=== PATIENT | female | born 1995 | race Caucasian/White ===

== ENCOUNTER 2016-10-12 12:42 | Inpatient (IN) | payer SELFPAY ==
[2016-10-12] MEDS ORDERED: NS 1,000 ML IV ONE ×2 (13:06→15:58)
--- NOTE | 2016-10-12 13:14 | EDPHY ---
H & P Stated Complaint: LUQ pain since yesterday;sent from our UC for eval;has IV inplace Source: Patient, Family Exam Limitations: No limitations - Personal History LMP (Females 10-55): 8-14 Days Ago Current Tetanus Diphtheria and Acellular Pertussis (TDAP): Yes Tetanus Vaccine Date: 2015 - Medical/Surgical History Hx Asthma: No Hx Chronic Respiratory Disease: No Hx Diabetes: No Hx Cardiac Disease: No Hx Renal Disease: No Hx Cirrhosis: No Hx Alcoholism: No Hx HIV/AIDS: No Hx Splenectomy or Spleen Trauma: No Other PMH: hx ovarian cysts - Social History Smoking Status: Former smoker Time Seen by Provider: 10/12/16 13:05 HPI/ROS: CHIEF COMPLAINT: Abdominal pain HISTORY OF PRESENT ILLNESS: Patient complains of 2 days history of left-sided abdominal pain. This is the left upper quadrant left-sided pain. It is a severe pain. Worse with movement palpation. Some improvement rest. Does not radiate. No constipation or diarrhea. Some nausea and vomiting. No bloody stools or emesis. No trauma or injury. No abdominal surgeries. She presented to urgent care where they performed laboratory studies and sent to to our facility due to suspected need for CT scan. No other associated complaints or modifying factors. PREVIOUS ABDOMINAL SURGERIES/DIAGNOSES: None REVIEW OF SYSTEMS: Ten systems reviewed and are negative unless otherwise noted in the HPI EXAMINATION: General Appearance: Alert, no distress Head: normocephalic, atraumatic Eyes: Pupils equal and round, no conjunctival pallor or injection ENT, Mouth: Mucous membranes moist. Uvula midline. Neck: Normal inspection, supple, non-tender Respiratory: Lungs are clear to auscultation. No wheezing, rhonchi or crackles. Cardiovascular: Regular rate and rhythm. No murmur. Gastrointestinal: Abdomen is soft. Moderate tenderness on the left quadrants. No guarding the left upper quadrant. No rigidity. No tympany. No CVA tenderness. Back: non-tender, no bony abnormalities Neurological: A&O, nonfocal, normal gait Skin: Warm and dry, no rash Extremities: Nontender, no pedal edema Psychiatric: Mood and affect normal DIFFERENTIAL DIAGNOSES: Including but not limited to gastritis, pancreatitis, colitis, diverticulitis, cholecystitis, enteritis, mesenteric adenitis MDM: 1:13 p.m. Left-sided abdominal pain with guarding and reported fever at home. CT scan has been ordered. IV fluid resuscitation, IV morphine and laboratory studies ordered 2:09 p.m. Pain medication has significantly improved her pain but she still does report left-sided pain. Laboratory studies reveal leukocytosis. CT scan is pending at this time. 3:[address] Espinoza contacted me with findings of pyelonephritis with mild hydronephrosis. Small collection of fluid within the kidney that he does not recommend drainage of at this time. I have informed the patient of this. I have ordered blood cultures and a lactic acid. Given the findings and her lack of pain control, I have patient hospitalist for admission. Proceed with antibiotics after blood cultures. Patient is comfortable with this plan. 4:04 p.m. Have discussed the case with hospitalist Dr. Jen Nascimento. She will admit the patient to her service. She agrees with Rocephin antibiotics at this time. Patient is informed of this and agrees to admission. She has been admitted in stable condition. ED Precautions: Worsening pain. Fever. Bloody stools. Bloody emesis. Constipation or diarrhea. SUPERVISION: This patient was independently evaluated without direct examination by the attending physician. Case was discussed with attending physician. Case discussed with Dr. Garfield Luo ([facility]) Constitutional: Initial Vital Signs Temperature (C) 37 C 10/12/16 12:45 Heart Rate 81 10/12/16 12:45 Respiratory Rate 18 10/12/16 12:45 Blood Pressure 95/58 L 10/12/16 12:45 O2 Sat (%) 97 10/12/16 12:45 O2 Delivery Mode Room Air O2 (L/minute) 16 Allergies/Adverse Reactions: No Known Allergies Allergy (Verified 10/12/16 12:51) Home Medications: Medication Instructions Recorded NK [No Known Home Meds] 10/12/16 Medical Decision Making ED Course/Re-evaluation: I did not see this patient while she was in the emergency department. However her care was discussed with the PA while the patient was in the department. I agree with treatment plan and management (Garfield Luo) - Data Points Laboratory Results: Laboratory Results 10/13/16 04:37 10/13/16 04:37 10/13/16 10/13/16 04:37 04:37 WBC 13.84 10^3/uL H 10^3/uL (3.80-9.50) RBC 3.43 10^6/uL L 10^6/uL (4.18-5.33) Hgb 11.2 g/dL L g/dL (12.6-16.3) Hct 32.3 % L % (38.0-47.0) MCV 94.2 fL fL (81.5-99.8) MCH 32.7 pg pg (27.9-34.1) MCHC 34.7 g/dL g/dL (32.4-36.7) RDW 12.1 % % (11.5-15.2) Plt Count 167 10^3/uL D 10^3/uL (150-400) MPV 9.7 fL fL (8.7-11.7) Neut % (Auto) 67.3 % % (39.3-74.2) Lymph % (Auto) 16.5 % % (15.0-45.0) [place] % (Auto) 15.0 % H % (4.5-13.0) Eos % (Auto) 0.4 % L % (0.6-7.6) Baso % (Auto) 0.4 % % (0.3-1.7) Nucleat RBC Rel Count 0.0 % % (0.0-0.2) Absolute Neuts (auto) 9.32 10^3/uL H 10^3/uL (1.70-6.50) Absolute Lymphs (auto) 2.28 10^3/uL 10^3/uL (1.00-3.00) Absolute Monos (auto) 2.08 10^3/uL H 10^3/uL (0.30-0.80) Absolute Eos (auto) 0.05 10^3/uL 10^3/uL (0.03-0.40) Absolute Basos (auto) 0.05 10^3/uL 10^3/uL (0.02-0.10) Absolute Nucleated RBC 0.00 10^3/uL 10^3/uL (0-0.01) Immature Gran % 0.4 % % (0.0-1.1) Immature Gran # 0.06 10^3/uL 10^3/uL (0.00-0.10) Sodium 138 mEq/L mEq/L (134-144) Potassium 3.8 mEq/L mEq/L (3.5-5.2) Chloride 110 mEq/L mEq/L (97-110) Carbon Dioxide 23 mEq/l mEq/l (22-31) Anion Gap 5 mEq/L L mEq/L (8-16) BUN 6 mg/dL L mg/dL (7-23) Creatinine 0.6 mg/dL mg/dL (0.6-1.0) Estimated GFR > 60 Glucose 90 mg/dL mg/dL (70-100) Calcium 7.8 mg/dL L mg/dL (8.5-10.4) Iron 14.0 mcg/dL L mcg/dL (37-170) TIBC 241 ug/dL L ug/dL (260-490) Iron Saturation 6 % L % (20-55) Ferritin 50.5 ng/mL ng/mL (6.2-264.0) Vitamin B12 307 pg/mL pg/mL (239-931) Microbiology Results: MICROBIOLOGY 10/12/16 16:39 Unspecified Urine Culture - Preliminary Gram Negative Elder Medications Given: Discontinued Medications Hydromorphone HCl (Dilaudid) 0.5 mg IVP EDNOW ONE Stop: 10/12/16 16:43 Last Admin: 10/12/16 16:45 Dose: 0.5 mg Sodium Chloride (Ns) 1,000 mls @ 0 mls/hr IV ONCE ONE PRN Reason: Wide Open Stop: 10/12/16 13:07 Last Admin: 10/12/16 13:06 Dose: 1,000 mls Sodium Chloride (Ns) 1,000 mls @ 0 mls/hr IV ONCE ONE PRN Reason: Wide Open Stop: 10/12/16 15:59 Last Admin: 10/12/16 16:16 Dose: 1,000 mls Ceftriaxone Sodium/Dextrose (Rocephin 1 Gm (Premix)) 50 mls @ 100 mls/hr IV EDNOW ONE PRN Reason: Protocol Stop: 10/12/16 16:32 Last Admin: 10/12/16 16:40 Dose: 50 mls Morphine Sulfate (Morphine) 2 mg IVP EDNOW ONE Stop: 10/12/16 13:14 Last Admin: 10/12/16 13:13 Dose: 2 mg Morphine Sulfate (Morphine) 2 mg IVP EDNOW ONE Stop: 10/12/16 13:34 Last Admin: 10/12/16 13:33 Dose: 2 mg Morphine Sulfate (Morphine) 4 mg IVP EDNOW ONE Stop: 10/12/16 14:30 Last Admin: 10/12/16 14:30 Dose: 4 mg Ondansetron HCl (Zofran) 4 mg IVP EDNOW ONE Stop: 10/12/16 16:44 Last Admin: 10/12/16 16:45 Dose: 4 mg Departure - Departure Disposition: [facility] Inpatient Acute Condition: Good
[2016-10-12 13:34] LABS: % IMMATURE GRANULYOCYTES 0.6 % (0.0-1.1); ABSOLUTE IMMATURE GRANULOCYTES 0.09 10^3/uL (0.00-0.10); ADD DIFF? NO; ADD MORPH? NO; ADD SCAN? NO; ATYPICAL LYMPHOCYTE FLAG 0 (0-99); FRAGMENT RBC FLAG 0 (0-99); HEMATOCRIT 33.8 % (38.0-47.0); HEMOGLOBIN 11.8 g/dL (12.6-16.3); LEFT SHIFT FLG 70 (0-99); LIPEMIA HEMOLYSIS FLAG 90 (0-99); MEAN CELL HEMOGLOBIN 32.1 pg (27.9-34.1); MEAN CELL HEMOGLOBIN CONCENTR. 34.9 g/dL (32.4-36.7); MEAN CELL VOLUME 91.8 fL (81.5-99.8); MEAN PLATELET VOLUME 9.8 fL (8.7-11.7); PLATELET CLUMPS FLAG 0 (0-99); PLATELET COUNT 224 10^3/uL (150-400); RED BLOOD CELL COUNT 3.68 10^6/uL (4.18-5.33); RED CELL DISTRIBUTION WIDTH 12.1 % (11.5-15.2)
[2016-10-12 13:50] LABS: ALANINE AMINOTRANSFERASE 25 IU/L (9-52); ALBUMIN 3.8 g/dL (3.5-5.0); ALKALINE PHOSPHATASE 53 IU/L (38-126); ANION GAP 10 mEq/L (8-16); ASPARTATE AMINOTRANSFERASE 19 IU/L (14-46); BILIRUBIN-CONJUGATED 0.3 mg/dL (0.0-0.5); BILIRUBIN-UNCONJUGATED 0.7 mg/dL (0.0-1.1); CALCIUM 8.1 mg/dL (8.5-10.4); CARBON DIOXIDE 24 mEq/l (22-31); CHLORIDE 107 mEq/L (97-110); CREATININE 0.6 mg/dL (0.6-1.0); GLOMERULAR FILTRATION RATE > 60; GLUCOSE 88 mg/dL (70-100); POTASSIUM 3.6 mEq/L (3.5-5.2); SODIUM 141 mEq/L (134-144); TOTAL PROTEIN 6.4 g/dL (6.3-8.2)
[2016-10-12] MEDS ORDERED: IOPAMIDOL (ISOVUE-300) 100 ML BTL IV ONE (14:20)
[2016-10-12 14:27] LABS: COLOR PALE YELLOW; LEUKOCYTE ESTERASE,URINE TRACE (NEGATIVE); NITRITE,URINE NEGATIVE (NEGATIVE)
[2016-10-12 14:35] LABS: BACTERIA TRACE /hpf (NONE SEEN); MUCUS TRACE /lpf (NONE-1+)
[2016-10-12] MEDS ORDERED: HYDROmorphONE/DILAUDID 1 MG/ML SYR ONE (16:02)
[2016-10-12] MEDS ORDERED: ONDANSETRON 4 MG/2 ML VIAL ONE (16:37)
[2016-10-12] MEDS ORDERED: HYDROmorphONE/DILAUDID 1 MG/ML SYR IVP ONE (16:42)
[2016-10-12] MEDS ORDERED: ONDANSETRON 4 MG/2 ML VIAL IVP ONE (16:43)
[2016-10-12] MEDS: KETOROLAC 30 MG/1 ML SDV IVP PRN (17:18)
[2016-10-12] MEDS: NS 1,000 ML IV SCH (17:18)
--- NOTE | 2016-10-12 18:07 | GHP ---
[f rep st] HISTORY AND PHYSICAL DATE OF ADMISSION: 10/12/2016 CHIEF COMPLAINT: Left upper quadrant pain. HISTORY: The patient is a 21-year-old female, who presents with severe left upper quadrant pain for the last 2 days. It started as a fever yesterday morning and then she had generalized abdominal pa in that quickly localized under her left rib cage. She had a fever to 103. The pain has progressiv mona worsened and is moving to her back and flank. It does not radiate to her groin. She had some t ransient dysuria 1 week ago that felt like a UTI but this spontaneously resolved so she did not seek treatment for antibiotics. Last night, she had recurrence of dysuria associated with her fever. S he did have nausea and vomiting this morning. PAST MEDICAL HISTORY: Copper IUD for control. MEDICATIONS: Please see computer record for full detailed list. ALLERGIES: No known drug allergies. SOCIAL HISTORY: No smoking. No alcohol. She lives with her boyfriend. They have no children. REVIEW OF SYSTEMS: Complete Review of Systems obtained. Review of Systems is negative regarding co nstitutional, HEENT, GI, pulmonary, cardiovascular, , hematology, skin, musculoskeletal, endocrine , psych except for positives as noted in HPI. FAMILY HISTORY: Grandmother with bipolar disorder. Otherwise negative. PHYSICAL EXAMINATION: GENERAL: Well-developed, well-nourished female, in no acute distress. VITAL SIGNS: Temperature is 37.0, pulse 106, blood pressure 123/57, satting 97% on room air. EYES: Nor mal conjunctivae, pupils react to light. ENT: Normal ears and nose. Hearing intact. Normal lips and teeth. Oropharynx moist. NECK: Trachea midline. No thyromegaly. CHEST: Normal respiratory effort. LUNGS: Clear to auscultation bilaterally. CARDIOVASCULAR: Regular rate and rhythm. No m urmur. No lower extremity edema. ABDOMEN: Soft, very tender in the left upper quadrant as well as her left costovertebral angle. She is exquisitely tender and jumps in pain with the most slight pa lpation. There is no hepatosplenomegaly. SKIN: Warm, dry, intact. No rash. MUSCULOSKELETAL: No cyanosis or clubbing. Strength 5/5 upper and lower extremities. NEUROLOGIC: Cranial nerves intac t. Normal sensation to light touch. PSYCH: Alert and oriented x3. Normal affect. Normal judgmen t and insight. Normal memory. LABORATORY DATA: White count 15.46, hematocrit 33.8, platelets 224. Sodium 141, potassium 3.6, chl oride 107, bicarb 24, BUN 6, creatinine 0.6, glucose 88. LFTs are negative. Lipase is negative. B eta hCG is negative. Lactate is 1.1. Urinalysis is remarkably under-whelming with 1+ blood, trace leuk esterase, trace bacteria, 1-3 white blood cells. IMAGING PROCEDURE: CT scan of the abdomen and pelvis shows pyelonephritis and possible pyonephrosis . This case was discussed with TIFFANY Caraballo, emergency room regarding need for admission. ASSESSMENT/PLAN: 1. Left-sided pyelonephritis with pyonephrosis. Continue IV ceftriaxone as started in the emergenc y room. Blood cultures are pending. I will add on a urine culture. Will treat pain with IV Dilaud id. Will consult Infectious Disease as this pyelonephritis is complicated by an area of pyonephrosi s. Per Radiology, this is not large enough to do any type of interventional drain. She may however need followup imaging to ensure resolution. 2. Sepsis. This is due to the pyelonephritis. Will continue IV fluids and follow her white blood cells. 3. Anemia. Her menstrual history needs to be clarified. Will check iron studies in the morning. CODE STATUS: Full. ADMISSION STATUS: Will admit to observation; although, given the complications as discussed above, she may need a longer stay. DVT PROPHYLAXIS: She is low risk. We will hold off on pharmacologic prophylaxis at this time. /[id number]/MODL
[2016-10-12] MEDS: PHENAZOPYRIDINE HCL 100 MG TAB PO SCH (20:28)
[2016-10-12] MEDS: oxyCODONE IR 5 MG TAB PO PRN ×2 (21:31→21:55)
[2016-10-12] MEDS: ONDANSETRON 4 MG/2 ML VIAL IVP PRN (21:31)
[2016-10-12] MEDS: HYDROmorphONE/DILAUDID 1 MG/ML SYR IVP PRN (21:56)
[2016-10-12] MEDS: ACETAMINOPHEN 325 MG TAB PO PRN (23:35)
[2016-10-13] MEDS: KETOROLAC 30 MG/1 ML SDV IVP PRN ×4 (02:05→23:39)
[2016-10-13] MEDS: oxyCODONE IR 5 MG TAB PO PRN ×5 (02:05→20:27)
[2016-10-13 04:42] LABS: % IMMATURE GRANULYOCYTES 0.4 % (0.0-1.1); ABSOLUTE IMMATURE GRANULOCYTES 0.06 10^3/uL (0.00-0.10); ADD DIFF? NO; HEMATOCRIT 32.3 % (38.0-47.0); HEMOGLOBIN 11.2 g/dL (12.6-16.3); MEAN CELL HEMOGLOBIN 32.7 pg (27.9-34.1); MEAN CELL HEMOGLOBIN CONCENTR. 34.7 g/dL (32.4-36.7); MEAN CELL VOLUME 94.2 fL (81.5-99.8); MEAN PLATELET VOLUME 9.7 fL (8.7-11.7); PLATELET COUNT 167 10^3/uL (150-400); RED BLOOD CELL COUNT 3.43 10^6/uL (4.18-5.33); RED CELL DISTRIBUTION WIDTH 12.1 % (11.5-15.2)
[2016-10-13 04:43] LABS: ADD MORPH? NO; ADD SCAN? NO; ATYPICAL LYMPHOCYTE FLAG 0 (0-99); FRAGMENT RBC FLAG 0 (0-99); LEFT SHIFT FLG 30 (0-99); LIPEMIA HEMOLYSIS FLAG 90 (0-99); PLATELET CLUMPS FLAG 0 (0-99)
[2016-10-13 05:07] LABS: ANION GAP 5 mEq/L (8-16); CALCIUM 7.8 mg/dL (8.5-10.4); CARBON DIOXIDE 23 mEq/l (22-31); CHLORIDE 110 mEq/L (97-110); CREATININE 0.6 mg/dL (0.6-1.0); GLOMERULAR FILTRATION RATE > 60; GLUCOSE 90 mg/dL (70-100); POTASSIUM 3.8 mEq/L (3.5-5.2); SODIUM 138 mEq/L (134-144)
[2016-10-13 05:16] LABS: % SATURATION 6 % (20-55); TOTAL IRON BINDING CAPACITY 241 ug/dL (260-490)
[2016-10-13 05:43] LABS: FERRITIN - BCH 50.5 ng/mL (6.2-264.0)
[2016-10-13] MEDS: PHENAZOPYRIDINE HCL 100 MG TAB PO SCH ×3 (09:22→20:26)
[2016-10-13] MEDS: NS 1,000 ML IV SCH ×2 (09:28→21:39)
[2016-10-13] MEDS: ACETAMINOPHEN 325 MG TAB PO PRN ×2 (09:28→16:27)
--- NOTE | 2016-10-13 10:05 | HOSPPROG ---
Hospitalist Progress Note Assessment/Plan: Tanisha is a 21 y/o female who presented to the ER with severe left upper quadrant pain. She had a fever of 103. This is her 3rd bout of pyelonephritis. Today is my first encounter with the patient. Chart reviewed. Reviewed her care with Dr Carl. * Acute pyelonephritis, left sided CT scan reviewed with Dr Carl on empiric Ceftriaxone awaiting blood cx and urine cx *pain due to the above should improve w treatment *sepsis due to the above *iron deficiency anemia she has heavy menses when improved from hospital stay/ should start iron therapy advised to use iron pans for cooking *plan: will require another midnight stay for treatment of IV antibiotics, repeat labs in a.m. Subjective: Tanisha is c/o left upper quadrant pain. Objective: Vital Signs Temp Pulse Resp BP Pulse Ox 36.7 C 80 16 95/56 L 96 10/13/16 09:19 10/13/16 09:19 10/13/16 09:19 10/13/16 09:19 10/13/16 09:19 Laboratory Results 10/13/16 04:37 10/13/16 04:37 10/12/16 10/13/16 10/14/16 05:59 05:59 05:59 Intake Total 3420 Output Total 1700 Balance 1720 - Physical Exam Constitutional: appears nourished, uncomfortable, No not in pain Eyes: PERRL Ears, Nose, Mouth, Throat: hearing normal Cardiovascular: regular rate and rhythym Respiratory: no respiratory distress Gastrointestinal: normoactive bowel sounds, tenderness Skin: warm, No normal color (pale) Musculoskeletal: full muscle strength Neurologic: sensation intact bilaterally Psychiatric: interacting appropriately ICD10 Worksheet Patient Problems: Problems Problem Status Onset Pyelonephritis Acute - ICD10 Problem Qualifiers (1) Pyelonephritis
--- NOTE | 2016-10-13 10:54 | GCON ---
[f rep st] CONSULTATION INFECTIOUS DISEASE CONSULTATION. DATE OF CONSULTATION: 10/13/2016 REASON FOR CONSULTATION: Pyelonephritis. HISTORY OF PRESENT ILLNESS: Patient is a 21-year-old female with a past medical history of recurren t UTIs and pyelonephritis whom I am asked to see in consultation for left-sided pyelonephritis. The patient was in her usual state of health until Friday at which point in time she developed the abru pt onset of fever and rigors. Her temperature reached 103 degrees. This was associated with left u pper quadrant pain which ultimately has radiated into the left flank. She notes that approximately 1 week prior to onset of fever she did have dysuria, urgency and frequency which resolved spontaneou sly without antibiotic therapy. Currently, she has associated nausea with vomiting and poor p.o. intake. She does not have any ongo ing dysuria, urgency, or frequency. She has not experienced vaginal discharge. She notes that she had pyelonephritis 4 years ago treated as an outpatient and also 1 episode of pyelonephritis in [facility] also treated as an outpatient. She describes having urinary tract infections approximatel y every 3 months. There is an association with increased frequency of UTI after intercourse. Based on her current symptoms, she sought care in the emergency department yesterday and was noted to hav e a leukocytosis with a temperature of 39.4. Blood cultures and urine cultures were obtained and th e patient was started empirically on ceftriaxone. CT scan of the abdomen and pelvis was performed w hich showed evidence of pyelonephritis with some hypodensity measuring approximately 3 x 2.7 cm, as well as a secondary focus measuring 1.5 cm without evidence of obstruction. Given the above finding s, I am now asked to assist in her ongoing management. PAST MEDICAL HISTORY: Recurrent UTI and pyelonephritis as outlined above. PAST SURGICAL HISTORY: Unremarkable. She has an IUD in place. CURRENT MEDICATIONS: Ceftriaxone 1 g IV daily, Dilaudid as needed, Toradol as needed, Oxy IR as nee ded, Pyridium 100 mg p.o. with meals. ALLERGIES: No known drug allergies. SOCIAL HISTORY: Patient does not smoke. She does not drink a significant amount of alcohol or use drugs. Recent travel to [place]. FAMILY HISTORY: Noncontributory. REVIEW OF SYSTEMS: Outside that noted in the HPI, remainder of 10-system review is unremarkable. PHYSICAL EXAMINATION: VITAL SIGNS: Temperature maximum 39.4, temperature current 36.7, heart rate 80, respiratory rate 16, blood pressure 95/56, oxygen saturation 96% on room air. GENERAL: Patient is mildly ill appearing, but nontoxic. HEENT: There is no scleral icterus, conjunctival injection , or conjunctival petechiae. The oropharynx is clear without lesions. Mucous membranes are moist. Dentition is in good repair. There is no nasal discharge. There is no tenderness over the frontal , maxillary, or mastoid area. NECK: Supple without palpable lymphadenopathy or thyromegaly. CHEST : Clear to auscultation bilaterally without adventitious sounds. Respiratory effort is normal. CA RDIOVASCULAR: Regular rate and rhythm with a 2/6 systolic murmur heard at the left upper sternal keturah rder. There are no gallops or rubs noted. ABDOMEN: Soft. Tender in the left upper quadrant witho ut peritoneal signs. There is no palpable organomegaly. Bowel sounds are present. BACK: There is left-sided CVA tenderness. MUSCULOSKELETAL: No cyanosis, clubbing, or edema. LYMPHATICS: No cer vical or supraclavicular nodes. SKIN: There are no stigmata of endocarditis. SKIN: Warm and dry to touch. NEUROLOGIC: Patient is alert and interacts appropriately with the examiner. Cranial ner ves 2-12 are grossly intact. Sensation is grossly intact. Muscle tone and bulk are normal. LABORATORY DATA: White blood cell count 13.8, hematocrit 32.3, platelets 167, neutrophils 67%, lymp hocytes 16%. Serum creatinine is 0.6, bicarbonate 23, AST 19, ALT 25, bilirubin 1.0, alkaline phosp hatase 53, lipase 14. Beta HCG is negative. Venous lactate is 1.1. Urinalysis shows 1-3 white blo od cells with trace bacteria. Blood and urine cultures are pending. IMAGING: CT scan as outlined above which was reviewed and interpreted by me today. IMPRESSION: Sepsis due to left-sided pyelonephritis: Clinical presentation and radiographic findin gs consistent with pyelonephritis. CT report describes possible small focus of pyelonephrosis. How ever, there is no obstruction which often is associated with finding of pyonephrosis. Suspect this is representing pyelonephritis at this point in time. It does not appear to be consistent with tere l abscess, although given hypodensity will need to be followed over time as this is possible to evol ve into a renal abscess. Most likely this will be due to enteric magalys such as E coli or Klebsiella pneumoniae. The patient may have concomitant bacteremia associated with her presentation. Given t he recurrent nature of her pyelonephritis and UTI, she will benefit with urologic evaluation once he r acute symptomatology has resolved. RECOMMENDATIONS: 1. Agree with empiric ceftriaxone pending culture data. 2. Follow up blood and urine cultures as available. 3. Follow clinical response to above measures. Patient will likely require a followup CT scan with timing dependent on clinical course to assess for evolution to renal abscess. 4. Discussed with patient that urologic evaluation at some point in the future should be undertaken given recurrent nature of clinical findings. Thank you for this consultation. We will continue to follow the patient with you. /[id number]/MODL
[2016-10-13] MEDS: HYDROmorphONE/DILAUDID 1 MG/ML SYR IVP PRN ×2 (12:03→21:39)
[2016-10-13] MEDS: ONDANSETRON 4 MG/2 ML VIAL IVP PRN ×2 (16:47→21:42)
[2016-10-13 23:41] VITALS: O2SAT 93
[2016-10-14] MEDS: oxyCODONE IR 5 MG TAB PO PRN ×3 (02:14→14:17)
[2016-10-14 05:05] LABS: % IMMATURE GRANULYOCYTES 0.3 % (0.0-1.1); ABSOLUTE IMMATURE GRANULOCYTES 0.03 10^3/uL (0.00-0.10); ADD DIFF? NO; ADD MORPH? NO; ADD SCAN? NO; ATYPICAL LYMPHOCYTE FLAG 0 (0-99); FRAGMENT RBC FLAG 0 (0-99); HEMATOCRIT 30.4 % (38.0-47.0); HEMOGLOBIN 10.4 g/dL (12.6-16.3); LEFT SHIFT FLG 10 (0-99); LIPEMIA HEMOLYSIS FLAG 90 (0-99); MEAN CELL HEMOGLOBIN CONCENTR. 34.2 g/dL (32.4-36.7); MEAN CELL VOLUME 93.5 fL (81.5-99.8); MEAN PLATELET VOLUME 9.9 fL (8.7-11.7); PLATELET CLUMPS FLAG 0 (0-99); PLATELET COUNT 180 10^3/uL (150-400); RED BLOOD CELL COUNT 3.25 10^6/uL (4.18-5.33)
[2016-10-14 05:26] LABS: ANION GAP 8 mEq/L (8-16); CALCIUM 7.9 mg/dL (8.5-10.4); CARBON DIOXIDE 21 mEq/l (22-31); CHLORIDE 106 mEq/L (97-110); CREATININE 0.5 mg/dL (0.6-1.0); GLOMERULAR FILTRATION RATE > 60; GLUCOSE 77 mg/dL (70-100); SODIUM 135 mEq/L (134-144)
[2016-10-14] MEDS: KETOROLAC 30 MG/1 ML SDV IVP PRN ×2 (07:35→14:17)
[2016-10-14] MEDS: NS 1,000 ML IV SCH (07:38)
[2016-10-14] MEDS: PHENAZOPYRIDINE HCL 100 MG TAB PO SCH ×2 (07:39→12:48)
[2016-10-14 07:56] VITALS: BP 124/64; PULSE 80; RESP 18; TEMP 98.6
--- NOTE | 2016-10-14 11:42 | PCMIDPN ---
Assessment/Plan: Assessment: Left-Sided pyelonephritis-E coli in the urine. Sensitive to fluoroquinolones. Will switch patient to oral Levaquin. Okay for discharge. Follow-up in the office in 1-2 weeks time. Anticipate need for total of 14 days of treatment. Plan: 1. Discontinue ceftriaxone. 2. Start Levaquin 750mg po daily. Needs 2 weeks of ongoing therapy. Subjective: Patient is feeling better. Some migration of pain toward her left costophrenic angle. No further fevers or chills. Feels that she is able to continue her treatment as an outpatient. Objective: ceftriaxone #3 Vital Signs Temp Pulse Resp BP Pulse Ox 37 C 80 18 124/64 H 93 10/14/16 07:55 10/14/16 07:55 10/14/16 07:55 10/14/16 07:55 10/14/16 07:55 Laboratory Results 10/14/16 04:54 10/14/16 04:54 - Physical Exam General Appearance: WD/WN, alert, no apparent distress, non-toxic Respiratory: lungs clear, normal breath sounds, No respiratory distress Cardiac/Chest: regular rate, rhythm, No tachycardia Abdomen: non-tender, soft, No mass Skin: normal color, warm/dry, No rash Neuro/Psych: alert, normal mood/affect, oriented x 3 ICD10 Worksheet Patient Problems: Problems Problem Status Onset Pyelonephritis Acute
--- NOTE | 2016-10-14 13:24 | HOSPPROG ---
Hospitalist Progress Note Assessment/Plan: Tanisha is a 21 y/o female who presented to the ER with severe left upper quadrant pain. She had a fever of 103. This is her 3rd bout of pyelonephritis. * Acute pyelonephritis, left sided/much improved CT scan reviewed with Dr Carl treated w Ceftriaxone home on Levaquin *pain better *sepsis due to the above *iron deficiency anemia she has heavy menses when improved from hospital stay/ should start iron therapy advised to use iron pans for cooking *plan:dc home, further f/u with urology Subjective: Tanisha is feeling better today. Objective: Vital Signs Temp Pulse Resp BP Pulse Ox 37 C 80 18 124/64 H 93 10/14/16 07:55 10/14/16 07:55 10/14/16 07:55 10/14/16 07:55 10/14/16 07:55 Laboratory Results 10/14/16 04:54 10/14/16 04:54 - Physical Exam Constitutional: no apparent distress, appears nourished, No not in pain (mild left upper quadrant) Eyes: PERRL Ears, Nose, Mouth, Throat: hearing normal Respiratory: no respiratory distress Skin: warm, normal color Musculoskeletal: full muscle strength, no muscle tenderness Neurologic: AAOx3 Psychiatric: interacting appropriately, not anxious ICD10 Worksheet Patient Problems: Problems Problem Status Onset Pyelonephritis Acute - ICD10 Problem Qualifiers (1) Pyelonephritis
--- NOTE | 2016-10-14 14:39 | GDS ---
[f rep st] DISCHARGE SUMMARY DISCHARGE DIAGNOSES: 1. Acute left-sided pyelonephritis. 2. Pain due to pyelonephritis. 3. Sepsis. 4. Iron-deficiency anemia. CONSULTATIONS: Dr. Garfield Carl with Infectious Disease. HISTORY: Briefly, the patient is a very nice 21-year-old female with a past medical history of recurrent UTIs. She was in her usual state of health until she developed an abrupt onset of fevers and rigors with a temperature of 103. Approximately 1 week prior to the onset of fever, she had dysuria, urgency, and frequency. A CT scan was performed of the abdomen and pelvis. This showed evidence of pyelonephritis with some hypodensity measuring approximately 3 x 2.7 cm, as well as a secondary focus measuring 1.5 cm, without evidence of obstruction. She was seen and evaluated by the Infectious Disease team who agreed with empiric treatment with ceftriaxone. Her blood cultures show no growth. Her urine culture grew out E coli, which was sensitive to multiple antibiotics. She will be discharged home on Levaquin. HOSPITAL COURSE PER PROBLEM: 1. Acute left-sided pyelonephritis, markedly improved. I recommended that she get followup with Urology. She has been given several resources. 2. Pain due to this, much improved. Recommend she alternate Tylenol and ibuprofen. 3. SIRS, resolved. 4. Iron-deficiency anemia. She says she has heavy menstrual cycles. Recommending that she cook using an iron albert. Also consider getting on oral iron therapy and following up with her primary care provider. PENDING LABS AND TESTS: Final results of blood cultures are pending. CONDITION ON DISCHARGE: Stable. Blood pressure is 124/64. Heart rate is 80. Respiratory rate is 18. O2 sats on room air are 92%. Temperature is 37 degrees Celsius. DISCHARGE MEDICATIONS: Please see the EMR. DISCHARGE INSTRUCTIONS: 1. To follow up with Urology. She may need further imaging. 2. Take it easy for the next several days. 3. To be aware that Levaquin can cause tendinitis. Greater than 30 minutes discharging and coordinating care. /[id number]/MODL MTDD
== END 2016-10-14 14:54 | disposition home or self-care (01) | DRG 872 ==
LOC: INTOOBSV 16:03 → F3E 16:55 → OBSVTOIN 10-13 10:02
PROVIDERS: ADMIT Internal Medicine; ATTEND Internal Medicine
DX: A41.51 Sepsis due to Escherichia coli [E. coli] (principal); N16 Renal tubulo-interstitial disorders in diseases classified elsewhere; D50.9 Iron deficiency anemia, unspecified; R10.12 Left upper quadrant pain; Z87.440 Personal history of urinary (tract) infections
CPT/HCPCS: 82607-90; 96374; G0378; J0696; J1170; J1885; J2405; Q9967